=== PATIENT | male | born 1960 ===

== ENCOUNTER 2020-10-13 10:27 | Outpatient (REF) | payer OTHER, SELFPAY ==
[2020-10-13 12:25] LABS: Alanine Aminotransferase 23 U/L (0-40); Albumin Level 4.2 g/dL (3.5-5.0); Alkaline Phosphatase 80 U/L (39-117); Anion Gap 12 (12-20); Aspartate Amino Transferase 18 U/L (5-37); Bilirubin Total 0.5 mg/dL (0.0-1.0); Blood Urea Nitrogen 16 mg/dL (9-16); Calcium 9.3 mg/dL (8.4-10.2); Carbon Dioxide 29 mmol/L (22-29); Chloride 102 mmol/L (96-108); Cholesterol 263 mg/dL; Estimated Glomerular Filt Rate > 60; Glucose Fasting 91 mg/dL (60-99); HDL Cholesterol 40 mg/dL; Potassium 4.8 mmol/l (3.3-5.1); Sodium 138 mmol/L (135-145); Total Protein 6.9 g/dL (6.5-8.0); Triglycerides 475 mg/dL
== END 2020-10-13 10:28 | disposition home or self-care (01) ==
LOC: HO.LAB 10:27
PROVIDERS: PCP Internal Medicine; Visit Provider Internal Medicine
DX: E78.2 Mixed hyperlipidemia (principal)
CPT/HCPCS: 80053; 80061

== ENCOUNTER 2021-01-06 09:45 | Outpatient (REF) | payer OTHER, SELFPAY ==
[2021-01-06 12:33] LABS: Alanine Aminotransferase 22 U/L (0-40); Albumin Level 4.6 g/dL (3.5-5.0); Alkaline Phosphatase 88 U/L (39-117); Anion Gap 13 (12-20); Aspartate Amino Transferase 22 U/L (5-37); Bilirubin Total 0.6 mg/dL (0.0-1.0); Blood Urea Nitrogen 22 mg/dL (9-16); Calcium 9.9 mg/dL (8.4-10.2); Carbon Dioxide 28 mmol/L (22-29); Chloride 102 mmol/L (96-108); Cholesterol 168 mg/dL; Estimated Glomerular Filt Rate > 60; Glucose Fasting 104 mg/dL (60-99); HDL Cholesterol 45 mg/dL; LDL Cholesterol Calculated 89 mg/dl; Potassium 4.8 mmol/L (3.3-5.1); Sodium 138 mmol/L (135-145); Total Protein 7.2 g/dL (6.5-8.0); Triglycerides 172 mg/dL
== END 2021-01-06 09:46 | disposition home or self-care (01) ==
LOC: HO.LAB 09:45
PROVIDERS: PCP Internal Medicine; Visit Provider Internal Medicine
DX: E78.2 Mixed hyperlipidemia (principal); E78.5 Hyperlipidemia, unspecified
CPT/HCPCS: 36415; 80053; 80061

== ENCOUNTER 2021-04-03 16:02 | Outpatient (REF) | payer OTHER, SELFPAY ==
--- NOTE | ~2021-04-03 | US_ITS ---
EXAMINATION: US EXTREMITY NONVASCULAR, RIGHT CLINICAL INFORMATION: Fullness over the right axillary region. COMPARISON: None TECHNIQUE: Limited ultrasound imaging through the right axilla was performed. FINDINGS: Imaging through the right axilla reveals a small lymph node in the area of previously noted lump measuring 2.0 x 0.7 x 0.7 cm. It has benign characteristics. No abnormal vascular flow seen. US/US extremity nonvascular IMPRESSION: Small benign lymph node noted in the right axilla. No lump seen at this time.
== END 2021-04-03 16:03 | disposition home or self-care (01) ==
LOC: HO.US 16:02
PROVIDERS: PCP Physician Assistant; Visit Provider Physician Assistant
DX: R79.89 Other specified abnormal findings of blood chemistry (principal)
CPT/HCPCS: 76882

== ENCOUNTER 2022-09-10 08:32 | Outpatient (REF) | payer OTHER, SELFPAY ==
[2022-09-10 09:26] LABS: Alanine Aminotransferase 24 U/L (0-40); Albumin Level 4.1 g/dL (3.5-5.0); Alkaline Phosphatase 93 U/L (39-117); Anion Gap 12 (12-20); Aspartate Amino Transferase 24 U/L (5-37); Bilirubin Total 0.6 mg/dL (0.0-1.0); Blood Urea Nitrogen 17 mg/dL (9-16); Calcium 9.5 mg/dL (8.4-10.2); Carbon Dioxide 28 mmol/L (22-29); Chloride 103 mmol/L (96-108); Cholesterol 204 mg/dL; Estimated Glomerular Filt Rate > 60; Glucose Fasting 105 mg/dL (60-99); HDL Cholesterol 40 mg/dL; LDL Cholesterol Calculated 126 mg/dl; Potassium 4.7 mmol/L (3.3-5.1); Sodium 138 mmol/L (135-145); Total Protein 6.7 g/dL (6.5-8.0); Triglycerides 194 mg/dL
== END 2022-09-10 08:33 | disposition home or self-care (01) ==
LOC: HO.LAB 08:32
PROVIDERS: PCP Internal Medicine; Visit Provider Internal Medicine
DX: E78.5 Hyperlipidemia, unspecified (principal); I10 Essential (primary) hypertension
CPT/HCPCS: 36415; 80053; 80061

== ENCOUNTER 2023-09-07 08:53 | Outpatient (REF) | payer OTHER, SELFPAY ==
[2023-09-07 10:05] LABS: Alanine Aminotransferase 16 U/L (0-40); Albumin Level 4.2 g/dL (3.5-5.0); Alkaline Phosphatase 88 U/L (39-117); Anion Gap 10 (12-20); Aspartate Amino Transferase 18 U/L (5-37); Bilirubin Total 0.4 mg/dL (0.0-1.0); Blood Urea Nitrogen 19 mg/dL (9-16); Calcium 9.5 mg/dL (8.4-10.2); Carbon Dioxide 29 mmol/L (22-29); Chloride 104 mmol/L (96-108); Cholesterol 231 mg/dL (<200); Estimated Glomerular Filt Rate > 60; Glucose Fasting 101 mg/dL (60-99); HDL Cholesterol 43 mg/dL (>40); LDL Cholesterol Calculated 145 mg/dL (<100); Potassium 4.8 mmol/L (3.3-5.1); Sodium 138 mmol/L (135-145); Total Protein 6.8 g/dL (6.5-8.0); Triglycerides 215 mg/dL (<150)
== END 2023-09-07 08:54 | disposition home or self-care (01) ==
LOC: HO.LAB 08:53
PROVIDERS: PCP Internal Medicine; Visit Provider Internal Medicine
DX: E78.5 Hyperlipidemia, unspecified (principal); H81.10 Benign paroxysmal vertigo, unspecified ear
CPT/HCPCS: 36415; 80053; 80061

== ENCOUNTER 2023-09-19 07:49 | Outpatient (AMB) | payer OTHER, SELFPAY ==
--- NOTE | 2023-09-19 07:51 | MHC.PC.OV ---
Vital Signs 09/19/23 07:54 Height 5 ft 9 in Weight 208 lb BMI 30.7 BP 130/80 Blood Pressure Location Lt brachial Position Sitting Pulse 78 Pulse Source Pulse Oximeter Pulse Oximetry (%) 99 Oxygen Delivery Method Room Air Intake Visit Reasons: Annual PE Intake Note: Patient here for an annual physical exam Retail Store Assistant Required: No Accompanied by: Self / Same As Patient Allergies atorvastatin Adverse Reaction (Intermediate, Verified 09/19/23 08:21) polyarthralgia Medication List - Last Reconciled 09/19/23 by Orly Chaudhry MD amlodipine 5 mg PO DAILY 90 days atorvastatin 40 mg PO BEDTIME 90 days fenofibrate 54 mg PO DAILY 90 days nabumetone 750 mg PO BID 90 days Tobacco use date assessed: 04/12/23 Dental Screening Dental Screen Date: 09/19/23 Did you have a dental visit in the last 12 months?: No Did you have a dental problem in the last 6 months where you did not have access to dental care?: No Was dental information given to patient?: Patient has dentist HPI HPI Comments History of Present Illness Details This is a 62-year-old male that comes for his physical exam. Last colonoscopy was 2018 and next colonoscopy should be 2020. Blood pressure has been stable with amlodipine 5 mg. Cholesterol elevated because he admits that he is not compliant with atorvastatin due to myalgias. Atorvastatin will be changed to rosuvastatin due to this matter. His [place] risk score at the moment is 15.1% risk of having a heart attack or stroke in the next 10 years. Patient is aware of this risk. Complains of a rash in arms that is maculopapular pruritic. [facility] Medical History Skin lesion BPPV (benign paroxysmal positional vertigo) Obese Mixed hyperlipidemia Essential hypertension Surgical History History of colonoscopy Deficient knowledge of leg surgery History of umbilical hernia repair History of lumbar fusion Family History Father No problems noted. Mother Breast cancer Maternal Aunt Cancer Maternal Uncle Cancer Social History Housing: Apartment Alcohol intake: never Patient Tobacco Use Status: Never used Tobacco e-Cigarette/Vaping Use: Never Used Second Hand Smoke Exposure: No service: No Current occupational status: unemployed Cognitive needs: No Hearing needs: No Vision needs: No Questionnaire Thrive Questionnaire Date Thrive assessed: 04/12/23 BERNARD-7 AMB Questionnaire BERNARD-7 Date BERNARD - 7 assessed: 04/12/23 Source: Developed by Drs. Rustam Laguerre, Sonia Aiken, Elvis Palomino and colleagues, with an educational lesvia from [employer]. Review of Systems Const All systems reviewed & are unremarkable except as noted in HPI and below Eyes Reports no additional complaints, Denies change in vision and Denies other visual disturbances Card Denies chest pain at rest, Denies chest pain with activity, Denies edema, Denies irregular heart rhythm, Denies claudication, Denies dyspnea, Denies dyspnea on exertion, Denies orthopnea, Denies paroxysmal nocturnal dyspnea and Denies slow heart rate Resp Denies cough, Denies dyspnea and Denies dyspnea on exertion GI Denies abdominal pain, Denies change in bowel habits, Denies excessive flatus, Denies nausea and Denies vomiting Denies urinary hesitancy, Denies urinary incontinence and Denies urinary urgency Musc Denies abnormal gait, Denies atrophy, Denies deformity and Denies limited range of motion Skin/Breast Denies bleeding lesions, Denies changing lesions and Denies rash Neuro Denies abnormal gait, Denies behavioral changes, Denies confusion and Denies lack of coordination Psych Denies behavioral changes and Denies confusion Physical exam (Primary Care) Vital Signs: Last Vital Signs Pulse 78 09/19/23 07:54 BP 130/80 09/19/23 07:54 Pulse Ox 99 09/19/23 07:54 Oxygen Delivery Method Room Air 09/19/23 07:54 BMI result Body Mass Index 30.7 Tobacco/Smoking Status: Tobacco use Status Tobacco use date assessed 04/12/23 09/19/23 07:54 Patient Tobacco Use Status Never used Tobacco 09/19/23 07:54 e-Cigarette/Vaping Use Never Used 09/19/23 07:54 Thrive Assessment: Date of Thrive Assessment Date Thrive assessed 04/12/23 09/19/23 07:54 Const General: No confusion Orientation/consciousness: patient oriented x3 and No confusion HENMT Head: Yes normal to inspection, Yes normocephalic and Yes atraumatic Ears: external ears normal Eyes General: appearance normal, both eyes and all related structures Eyelids: Yes eyelids normal Conjunctivae: conjunctivae normal Neck Neck: Yes normal visual inspection and Yes supple Resp Effort & Inspection: normal respiratory effort Auscultation: clear to auscultation bilaterally Cardio Jugular venous distension: no JVD Rate: regular rate Rhythm: regular rhythm Heart sounds: S1 normal heart sound present and S2 normal heart sound present GI Inspection: Yes normal to inspection Palpation (GI): Soft to palpation and nontender Auscultation: normal bowel sounds Skin General skin exam: no rashes or lesions noted Neuro General: patient oriented x3, no focal motor deficits and No confusion Extrem General: Yes full ROM Psych Appearance: grossly normal Office Procedures Flu Questionnaire Does the patient have a severe egg allergy?: No Immunizations flu vacc [id number] 6mos up(PF) 60 mcg(15 mcgx4)/0.5 mL IM syringe Performing Provider: Orly Chaudhry MD [facility] Documented (not given) by: SULEMAN Ashley on 09/19/23 08:26 Reason Not Given: Not Given Assessment and Plan Assessment & Plan (1) Physical exam: Code(s): Z00.00 - Encounter for general adult medical examination without abnormal findings Plan: Repeat in a year. Orders: Orders Lipid Panel 6 Months E78.5 - Hyperlipidemia, unspecified Comprehensive [place]. Panel Fast 6 Months E78.2 - Mixed hyperlipidemia Influenza [id number] Immunization Today Z23 - Encounter for immunization Medications: New rosuvastatin 40 mg PO DAILY 90 days 90 tabs 1RF E78.2 - Mixed hyperlipidemia triamcinolone acetonide 0.5% 1 appl topical DAILY 2 weeks 15 grams 1RF Discontinued atorvastatin Discontinued Reason: Patient Completed Course 40 mg PO BEDTIME 90 days 90 tabs 3RF Coding Level of Care Code Est Pt Prev Care 40-64y(66808) Diagnoses Physical exam Z00.00 Time Spent (min) 32
[2023-09-19 07:54] VITALS: BP 130/80; PULSE 78; O2SAT 99; BMI 30.7
== END 2023-09-19 08:19 | disposition home or self-care (01) ==
PROVIDERS: Visit Provider Internal Medicine
DX: Z00.00 Encounter for general adult medical examination without abnormal findings (principal)
CPT/HCPCS: 99396

== ENCOUNTER 2023-12-07 15:37 | Outpatient (AMB) | payer OTHER, SELFPAY ==
--- NOTE | 2023-12-07 15:49 | MHC.PC.OV ---
Vital Signs 12/07/23 15:50 12/07/23 16:50 Height 5 ft 9 in Weight 213 lb BMI 31.5 BP 138/90 H 138/88 Blood Pressure Location Lt brachial Lt brachial Position Sitting Sitting Intake Visit Reasons: pain on left big toe joint Intake Note: Patient here c/o big toe pain Medical Services Manager Required: No Accompanied by: Self / Same As Patient Allergies atorvastatin Adverse Reaction (Intermediate, Verified 12/07/23 16:07) polyarthralgia Medication List - Last Reconciled 12/07/23 by Orly Chaudhry MD amlodipine 5 mg PO DAILY 90 days fenofibrate 54 mg PO DAILY 90 days nabumetone 750 mg PO BID 90 days naproxen 500 mg PO BID rosuvastatin 40 mg PO DAILY 90 days triamcinolone acetonide 0.5% 1 appl topical DAILY 2 weeks Tobacco use date assessed: 12/07/23 Dental Screening Dental Screen Date: 12/07/23 Did you have a dental visit in the last 12 months?: No Did you have a dental problem in the last 6 months where you did not have access to dental care?: No Was dental information given to patient?: Patient has dentist HPI HPI Comments History of Present Illness Details This is a 63-year-old male with hypertension, mixed hyperlipidemia and obesity that complains of left 1st toe pain and swelling that started 5 days ago. He went to [facility] and was prescribed naproxen. Dated uric acid and CBC but I do not have the results. We will repeated today as well as an x-ray. No fever. Naproxen has decrease his inflammation and is able to move the toe. Blood pressure stable. On statins and fibrates for mixed hyperlipidemia. He is obese with a BMI of 31.5 was advised to diet and exercise to reach BMI goal less than 30. Was advised to do a low uric acid diet. [facility] Medical History (Updated 12/07/23 @ 16:09 by Orly Chaudhry MD) Skin lesion BPPV (benign paroxysmal positional vertigo) Obese Mixed hyperlipidemia Essential hypertension Surgical History History of colonoscopy Deficient knowledge of leg surgery History of umbilical hernia repair History of lumbar fusion Family History Father No problems noted. Mother Breast cancer Maternal Aunt Cancer Maternal Uncle Cancer Social History Housing: Apartment Alcohol intake: never Patient Tobacco Use Status: Never used Tobacco e-Cigarette/Vaping Use: Never Used Second Hand Smoke Exposure: No service: No Current occupational status: unemployed Cognitive needs: No Hearing needs: No Vision needs: No Questionnaire PHQ-9 Over the last 2 weeks, how often have you been bothered by any of the following problems? 1. Little interest or pleasure in doing things: not at all 2. Feeling down, depressed, or hopeless: not at all 3. Trouble falling or staying asleep, or sleeping too much: not at all 4. Feeling tired or having little energy: not at all 5. Poor appetite or overeating: not at all 6. Feeling bad about yourself - or that you are a failure or have let yourself or your family down: not at all 7. Trouble concentrating on things, such as reading the newspaper or watching television: not at all 8. Moving or speaking so slowly that other people could have noticed. Or the opposite - being so fidgety or restless that you have been moving around a lot more than usual: not at all 9. Thoughts that you would be better off or of hurting yourself in some way: not at all Total score: 0 Depression Screening Interpretation: Negative Depression Screening Done: Yes 07660 - PHQ-9 Billing: Yes Source: Developed by Drs. Rustam Laguerre, Sonia Aiken, Elvis Palomino and colleagues, with an educational lesvia from [employer]. Thrive Questionnaire Date Thrive assessed: 12/07/23 I am a: Patient What is your living situation today?: I have a steady place to live Within the past 12 months, did the food you bought not last and you didn't have the money to get more?: Never true Within the past 12 months, did you worry whether your food would run out before you got money to buy more?: Never true Do you have trouble paying for medicines?: No Do you have trouble getting transportation to medical appointments?: No Do you have trouble paying your heating and electricity bill?: No Do you have trouble taking care of your child, family member or friend?: No Do you have trouble with day-to-day activities such as bathing, preparing meals, shopping, managing finances, etc.?: No Are you currently unemployed and looking for a job?: No Are you interested in more education?: No Please select the resources that you would like help with: None Currently or been in a relationship where the following occur: no concerns reported THRIVE Score: 0 AUDIT C Alcohol Use Questionnaire (AUDIT-C) 1. How often do you have a drink containing alcohol?: Never Total Score: 0 BERNARD-7 AMB Questionnaire BERNARD-7 Date BERNARD - 7 assessed: 12/07/23 Feeling nervous, anxious, or on edge: 0 = Not at all Not being able to stop or control worryin = Not at all Worrying too much about different things: 0 = Not at all Trouble relaxin = Not at all Being so restless that it is hard to sit still: 0 = Not at all Becoming easily annoyed or irritable: 0 = Not at all Feeling afraid as if something awful might happen: 0 = Not at all Total BERNARD-7 score (0-4 normal; 5-9 mild; 10-14 moderate; 15-21 severe): 0 Source: Developed by Drs. Rustam Laguerre, Sonia Aiken, Elvis Palomino and colleagues, with an educational lesvia from [employer]. BERNARD-7 Assessment Billing BERNARD-7 Assessment Tool: BERNARD-7 Assessment 39045 Review of Systems Const All systems reviewed & are unremarkable except as noted in HPI and below Eyes Reports no additional complaints, Denies change in vision and Denies other visual disturbances Card Denies chest pain at rest, Denies chest pain with activity, Denies edema, Denies irregular heart rhythm, Denies claudication, Denies dyspnea, Denies dyspnea on exertion, Denies orthopnea, Denies paroxysmal nocturnal dyspnea and Denies slow heart rate Resp Denies cough, Denies dyspnea and Denies dyspnea on exertion GI Denies abdominal pain, Denies change in bowel habits, Denies excessive flatus, Denies nausea and Denies vomiting Denies urinary hesitancy, Denies urinary incontinence and Denies urinary urgency Musc Denies abnormal gait, Denies atrophy, Denies deformity and Denies limited range of motion Skin/Breast Denies bleeding lesions, Denies changing lesions and Denies rash Neuro Denies abnormal gait, Denies behavioral changes and Denies lack of coordination Psych Denies behavioral changes Physical exam (Primary Care) Vital Signs: Last Vital Signs BP 138/90 H 12/07/23 15:50 BMI result Body Mass Index 31.5 Tobacco/Smoking Status: Tobacco use Status Tobacco use date assessed 12/07/23 12/07/23 15:53 Patient Tobacco Use Status Never used Tobacco 12/07/23 15:53 e-Cigarette/Vaping Use Never Used 12/07/23 15:53 PHQ-9: PHQ-9 Score PHQ-9: Total score 0 12/07/23 16:15 Depression Screening Interpretation: Negative Thrive Assessment: Date of Thrive Assessment Date Thrive assessed 12/07/23 12/07/23 15:53 Currently or been in a relationship where the following occur: no concerns reported Eyes General: appearance normal, both eyes and all related structures Eyelids: Yes eyelids normal Conjunctivae: conjunctivae normal Neck Neck: Yes normal visual inspection and Yes supple Resp Effort & Inspection: normal respiratory effort Auscultation: clear to auscultation bilaterally Cardio Jugular venous distension: no JVD Rate: regular rate Rhythm: regular rhythm Heart sounds: S1 normal heart sound present and S2 normal heart sound present Extrem Other: podagra General: Yes full ROM Assessment and Plan Assessment & Plan (1) Essential hypertension: Code(s): I10 - Essential (primary) hypertension Plan: Continue amlodipine. Blood pressure goal is equal or less than 130/80. (2) Mixed hyperlipidemia: Code(s): E78.2 - Mixed hyperlipidemia Plan: Continue statins and fibrates. (3) Left foot pain: Code(s): M79.672 - Pain in left foot Plan: X-ray ordered. Continue naproxen. CBC and uric acid ordered. (4) Obese: Code(s): E66.9 - Obesity, unspecified Qualifiers: Obesity type: due to excess calories Obesity classification: adult class 1 (BMI 30 - 34.9) Serious obesity comorbidity presence: without serious comorbidity Body mass index: BMI 31.0-31.9 Qualified Code(s): E66.09 - Other obesity due to excess calories; Z68.31 - Body mass index [BMI] 31.0-31.9, adult Plan: Start diet and exercise. BMI goal is less than 30. Orders: Orders Uric Acid Today M10.9 - Gout, unspecified XR foot LT 2V Today M79.672 - Pain in left foot Complete Blood Count Auto Diff Today M79.672 - Pain in left foot Coding Level of Care Code Est Pt Level 4 (87675) Diagnoses Essential hypertension I10 Mixed hyperlipidemia E78.2 Left foot pain M79.672 Class 1 obesity due to excess calories without serious comorbidity with body mass index (BMI) of 31.0 to 31.9 in adult E66.09; Z68.31 Obesity type: due to excess calories Obesity classification: adult class 1 (BMI 30 - 34.9) Serious obesity comorbidity presence: without serious comorbidity Body mass index: BMI 31.0-31.9 Additional Codes BERNARD-7 Assessment Billing - BERNARD-7 Assessment Tool: BERNARD-7 Assessment 98845 ([id number]) Time Spent (min) 23
[2023-12-07 15:50] VITALS: BP 138/90; BMI 31.5
[2023-12-07 16:50] VITALS: BP 138/88
== END 2023-12-07 16:14 | disposition home or self-care (01) ==
PROVIDERS: PCP Internal Medicine; Visit Provider Internal Medicine
DX: I10 Essential (primary) hypertension (principal); E78.2 Mixed hyperlipidemia; M79.672 Pain in left foot; E66.09 Other obesity due to excess calories; Z68.31 Body mass index [BMI] 31.0-31.9, adult
CPT/HCPCS: 99214

== ENCOUNTER 2023-12-07 16:24 | Outpatient (REF) | payer OTHER, SELFPAY ==
--- NOTE | ~2023-12-07 | XR_ITS ---
EXAMINATION: XR FOOT, LEFT CLINICAL INFORMATION: Pain. COMPARISON: None available. TECHNIQUE: AP, lateral, and oblique views of the left foot. FINDINGS: The bones and soft tissues are normal. No fracture. Alignment is anatomic. Joint spaces are maintained. XR/XR foot LT 2V IMPRESSION: Normal left foot.
[2023-12-07 16:36] LABS: MANUAL DIFF FLAG NO
[2023-12-07 16:54] LABS: Basophils Percent Auto 0.2 % (0-2); Eosinophils Absolute Auto 0.2 X10*3/uL (0.0-0.4); Eosinophils Percent Auto 2.9 % (0-4); Hematocrit 41.6 % (42.0-52.0); Hemoglobin 13.9 g/dl (14.0-18.0); Imm Gran Abs Auto 0.03 X10*3/uL (0.00-0.03); Imm Gran Pct Auto 0.4 % (0.0-0.4); Lymphocytes Absolute Auto 2.2 X10*3/uL (1.2-4.9); Lymphocytes Percent Auto 26.8 % (20-40); Mean Corpuscular HGB Conc 33.4 g/dl (31.0-36.0); Mean Corpuscular Hemoglobin 28.7 pg (27.0-33.0); Mean Platelet Volume 10.2 fL (9.4-12.4); Monocytes Absolute Auto 0.6 X10*3/uL (0.1-1.2); Monocytes Percent Auto 6.7 % (2-11); Neutrophils Absolute Auto 5.2 x10*3/uL (2.0-8.3); Platelet Count 320 X10*3/uL (160-400); Red Blood Count 4.84 X10*6/uL (4.60-5.80); Red Cell Distribution Width 12.8 % (11.0-16.0); White Blood Count 8.2 X10*3/uL (4.8-10.8)
[2023-12-07 17:25] LABS: Alanine Aminotransferase 17 U/L (0-40); Albumin Level 4.3 g/dL (3.5-5.0); Alkaline Phosphatase 93 U/L (39-117); Anion Gap 13 (12-20); Aspartate Amino Transferase 20 U/L (5-37); Bilirubin Total 0.3 mg/dL (0.0-1.0); Blood Urea Nitrogen 15 mg/dL (9-16); Calcium 9.9 mg/dL (8.4-10.2); Carbon Dioxide 28 mmol/L (22-29); Chloride 102 mmol/L (96-108); Cholesterol 191 mg/dL (<200); Estimated Glomerular Filt Rate > 60; Glucose Fasting 94 mg/dL (60-99); HDL Cholesterol 36 mg/dL (>40); LDL Cholesterol Calculated 114 mg/dL (<100); Potassium 4.6 mmol/L (3.3-5.1); Sodium 138 mmol/L (135-145); Total Protein 7.5 g/dL (6.5-8.0); Triglycerides 207 mg/dL (<150); Uric Acid 6.6 mg/dL (3.4-7.0)
== END 2023-12-07 16:25 | disposition home or self-care (01) ==
LOC: HO.LAB 16:24
PROVIDERS: PCP Internal Medicine; Visit Provider Internal Medicine
DX: M10.9 Gout, unspecified (principal); M79.672 Pain in left foot; E78.2 Mixed hyperlipidemia; E78.5 Hyperlipidemia, unspecified
CPT/HCPCS: 36415; 73620; 80053; 80061; 84550; 85025

== ENCOUNTER 2024-03-19 10:08 | Outpatient (REF) | payer OTHER, SELFPAY ==
[2024-03-19 11:20] LABS: Alanine Aminotransferase 15 U/L (0-40); Alkaline Phosphatase 86 U/L (39-117); Anion Gap 9 (12-20); Aspartate Amino Transferase 17 U/L (5-37); Bilirubin Total 0.4 mg/dL (0.0-1.0); Blood Urea Nitrogen 17 mg/dL (9-16); Calcium 9.9 mg/dL (8.4-10.2); Carbon Dioxide 27 mmol/L (22-29); Chloride 106 mmol/L (96-108); Cholesterol 238 mg/dL (<200); Estimated Glomerular Filt Rate > 60; Glucose Fasting 95 mg/dL (60-99); HDL Cholesterol 43 mg/dL (>40); LDL Cholesterol Calculated 154 mg/dL (<100); Potassium 4.4 mmol/L (3.3-5.1); Sodium 138 mmol/L (135-145); Total Protein 6.7 g/dL (6.5-8.0); Triglycerides 209 mg/dL (<150)
== END 2024-03-19 10:09 | disposition home or self-care (01) ==
LOC: HO.LAB 10:08
PROVIDERS: PCP Internal Medicine; Visit Provider Internal Medicine
DX: I10 Essential (primary) hypertension (principal); E78.5 Hyperlipidemia, unspecified
CPT/HCPCS: 36415; 80053; 80061

== ENCOUNTER 2024-03-21 08:00 | Outpatient (AMB) | payer OTHER, SELFPAY ==
--- NOTE | 2024-03-21 08:03 | MHC.PC.OV ---
Vital Signs 03/21/24 08:04 03/21/24 10:03 Height 5 ft 9 in Weight 211 lb 8 oz BMI 31.2 BP 152/90 H 150/90 H Blood Pressure Location Lt brachial Lt brachial Position Sitting Sitting Intake Visit Reasons: bp Intake Note: Patient here for a follow up BP Signal And Communications Maintainer Required: No Accompanied by: Self / Same As Patient Allergies atorvastatin Adverse Reaction (Intermediate, Verified 03/21/24 08:30) polyarthralgia Medication List - Last Reconciled 03/21/24 by Orly Chaudhry MD amlodipine 5 mg PO DAILY 90 days fenofibrate 54 mg PO DAILY 90 days nabumetone 750 mg PO BID 90 days naproxen 500 mg PO BID rosuvastatin 40 mg PO DAILY 90 days Tobacco use date assessed: 12/07/23 Dental Screening Dental Screen Date: 12/07/23 HPI HPI Comments History of Present Illness Details This is a 63-year-old male with hypertension, mixed hyperlipidemia and obesity that comes today for follow-up on his conditions. Blood pressure elevated and he took some medication but he has not sure if it was amlodipine which has not been refilled since 2021. Blood pressure will be recheck in 3 weeks by nurse navigator. He admits not being compliant with statins and fibrates and his cholesterol and triglycerides are elevated. He also does not follow a low-cholesterol diet. He has obese with a BMI of 31.2 and was advised to do diet and exercise to reach BMI goal less than 30. No chest pain or shortness on breath. [facility] Medical History Skin lesion BPPV (benign paroxysmal positional vertigo) Obese Mixed hyperlipidemia Essential hypertension Surgical History History of colonoscopy Deficient knowledge of leg surgery History of umbilical hernia repair History of lumbar fusion Family History Father No problems noted. Mother Breast cancer Maternal Aunt Cancer Maternal Uncle Cancer Social History Housing: Apartment Alcohol intake: never Patient Tobacco Use Status: Never used Tobacco e-Cigarette/Vaping Use: Never Used Second Hand Smoke Exposure: No service: No Current occupational status: employed Current occupational exposures/hazards: No Cognitive needs: No Hearing needs: No Vision needs: Yes Questionnaire Thrive Questionnaire Date Thrive assessed: 12/07/23 BERNARD-7 AMB Questionnaire BERNARD-7 Date BERNARD - 7 assessed: 12/07/23 Source: Developed by Drs. Rustam Laguerre, Sonia Aiken, Elvis Palomino and colleagues, with an educational lesvia from [employer]. Review of Systems Const All systems reviewed & are unremarkable except as noted in HPI and below Card Denies chest pain at rest, Denies chest pain with activity, Denies edema, Denies irregular heart rhythm, Denies claudication, Denies dyspnea, Denies dyspnea on exertion, Denies orthopnea, Denies paroxysmal nocturnal dyspnea and Denies slow heart rate Resp Denies cough, Denies dyspnea and Denies dyspnea on exertion GI Denies abdominal pain, Denies change in bowel habits, Denies excessive flatus, Denies nausea and Denies vomiting Denies urinary hesitancy, Denies urinary incontinence and Denies urinary urgency Musc Denies atrophy, Denies deformity and Denies limited range of motion Physical exam (Primary Care) Vital Signs: Last Vital Signs BP 152/90 H 03/21/24 08:04 Care Plan Goal for BP management: Recheck blood pressure with nurse navigator in 3 weeks. Next steps: Be compliant with amlodipine. BMI result Body Mass Index 31.2 BMI Assessment/Plan discussion: High BMI High, discussed plan: lifestyle, weight reduction, dietary and physical activity Tobacco/Smoking Status: Tobacco use Status Tobacco use date assessed 12/07/23 03/21/24 08:09 Patient Tobacco Use Status Never used Tobacco 03/21/24 08:09 e-Cigarette/Vaping Use Never Used 03/21/24 08:09 Thrive Assessment: Date of Thrive Assessment Date Thrive assessed 12/07/23 03/21/24 08:09 Resp Effort & Inspection: normal respiratory effort Auscultation: clear to auscultation bilaterally Cardio Jugular venous distension: no JVD Rate: regular rate Rhythm: regular rhythm Heart sounds: S1 normal heart sound present and S2 normal heart sound present Extrem General: Yes full ROM Assessment and Plan Assessment & Plan (1) Essential hypertension: Code(s): I10 - Essential (primary) hypertension Plan: Be compliant with amlodipine. Blood pressure goal is equal or less than 130/80. (2) Mixed hyperlipidemia: Code(s): E78.2 - Mixed hyperlipidemia Plan: Be compliant with statins and fibrates. LDL goal is less than 70. (3) Obese: Code(s): E66.9 - Obesity, unspecified Qualifiers: Obesity type: due to excess calories Obesity classification: adult class 1 (BMI 30 - 34.9) Serious obesity comorbidity presence: without serious comorbidity Body mass index: BMI 31.0-31.9 Qualified Code(s): E66.09 - Other obesity due to excess calories; Z68.31 - Body mass index [BMI] 31.0-31.9, adult Plan: Start diet and exercise. BMI goal is less than 30. Orders: Orders Lipid Panel 6 Months E78.5 - Hyperlipidemia, unspecified Comprehensive [place]. Panel Fast 6 Months E78.2 - Mixed hyperlipidemia Medications: Refilled fenofibrate 54 mg PO DAILY 90 tabs 3RF 90 days rosuvastatin 40 mg PO DAILY 90 tabs 1RF 90 days E78.2 - Mixed hyperlipidemia amlodipine 5 mg PO DAILY 90 tabs 1RF 90 days I10 - Essential (primary) hypertension Discontinued nabumetone Discontinued Reason: Patient Completed Course 750 mg PO BID 90 days 180 tabs 1RF Coding Level of Care Code Est Pt Level 3 (59179) Complex EM visit Add On G2211 Diagnoses Essential hypertension I10 Mixed hyperlipidemia E78.2 Class 1 obesity due to excess calories without serious comorbidity with body mass index (BMI) of 31.0 to 31.9 in adult E66.09; Z68.31 Obesity type: due to excess calories Obesity classification: adult class 1 (BMI 30 - 34.9) Serious obesity comorbidity presence: without serious comorbidity Body mass index: BMI 31.0-31.9 Time Spent (min) 19
[2024-03-21 08:04] VITALS: BP 152/90; BMI 31.2
[2024-03-21 10:03] VITALS: BP 150/90
== END 2024-03-21 08:40 | disposition home or self-care (01) ==
PROVIDERS: PCP Internal Medicine; Visit Provider Internal Medicine
DX: I10 Essential (primary) hypertension (principal); E78.2 Mixed hyperlipidemia; E66.09 Other obesity due to excess calories; Z68.31 Body mass index [BMI] 31.0-31.9, adult
CPT/HCPCS: 99213; G2211

== ENCOUNTER 2024-11-16 09:47 | Outpatient (REF) | payer OTHER, SELFPAY ==
--- OUTSIDE RECORDS SUMMARY | 2024-11-16 10:28 | XMS_ITS | Data Portability ---
Author Organization CHIRAG Mccain [address] Address [address] [place] [address] Assessment Encounter Date Assessment Date Assessment LastModified by Organization Details LastModified Time 12/02/2023 12/02/2023 Duplicate Visit - error this day with clinical staff and having trouble ordering labs. See other note on the same date. This chart had billing information added but it should be a left without being seen. Yolanda Schafer PA-C [email or web address] Not available 01/29/2024 09:33:21 12/02/2023 12/02/2023 C/f for gout. DDx cellulitis although less likely. Will tx for gout. Will follow up on Uric acid and CBC. [email or web address] Not available 12/02/2023 17:08:30 Plan of Treatment Reminders Order Date Submit Date Provider Last Modified By Organization Details Last Modified Time Details Appointments None recorded. Lab uric acid, serum or plasma 2023 024 [email or web address] 5 [facility] ([place]), [address] [place], [address], 4 08:13:12 CBC w/ auto diff 2023 024 [email or web address] 31 [facility] ([place]), [address] [place], [address], 4 10:35:03 uric acid, serum or plasma 2023 024 [facility], [address] [place], [address], 4 08:08:16 CBC w/ auto diff 2023 024 [place] [facility], [place], [address], 08:08:15 Referral None recorded. Procedures None recorded. Surgeries None recorded. Imaging None recorded. Medication Orders naproxen 500 mg tablet 2023 024 [facility], [address] [facility], [place], [address], 11:32:09 Patient TargetsNo targets recorded. Patient Instructions Encounter Date Encounter Id Patient Instructions Last Modified By Organization Details Last Modified Time 12/02/2023 [id number] specimen collection & handling* Not available 12/15/2023 12:16:18 12/02/2023 [id number] specimen collection & handling* marchambo Not available 12/02/2023 14:00:11 You were seen today for left toe pain. your pain is concerning for gout. It could also be from infection but less likely. Recommendation as below: - Naproxen 500 mg twice a day for 5-7 days. Take with food. - We will contact you with the lab results. - Return to urgent care if worsening symptoms or lack of improvement [email or web address] Not available 12/02/2023 10:27:12 Reason for Referral None Reported. Results Created Date Observation Date Name Description Value Unit Range Abnormal Flag Note LastModifiedBy Organization Detail LastModifiedTime 12/02/1912/03/2023 CBC WITH DIFFE RENTI AL/PL ATELE T WBC 8.9 x10e3 /uL 3.4-10 .8 Not Available [facility] ([facility]) [address] [facility], [place], [address], 12/03/2023 08:08:15 12/02/1912/03/2023 CBC WITH DIFFE RENTI AL/PL ATELE T RBC 4.75 x10e6 /uL 4.14-5 .80 Not Available [facility] ([facility]) [address] [facility], [place], [address], 12/03/2023 08:08:15 12/02/19 24 12/03/2023 CBC WITH DIFFE RENTI AL/PL ATELE T hemoglobin 14.1 g/dL 13.0-1 7.7 Not Available [facility] ([facility]) [address] [place], [address], 12/03/2023 08:08:15 12/02/19 24 12/03/2023 CBC WITH DIFFE RENTI AL/PL ATELE T hematocrit 41.4 % 37.5-5 1.0 Not Available [facility] ([facility]) [address] [place], [address], 12/03/2023 08:08:15 12/02/19 24 12/03/2023 CBC WITH DIFFE RENTI AL/PL ATELE T MCV 87 fL 79-97 Not Available [facility] ([facility]) [address] [facility], [place], [address], 12/03/2023 08:08:15 12/02/19 24 12/03/2023 CBC WITH DIFFE RENTI AL/PL ATELE T MCH 29.7 pg 26.6-3 3.0 Not Available [facility] ([facility]) [address] [place], [address], 12/03/2023 08:08:15 12/02/19 24 12/03/2023 CBC WITH DIFFE RENTI AL/PL ATELE T MCHC 34.1 g/dL 31.5-3 5.7 Not Available [facility] ([facility]) [address] [place], [address], 12/03/2023 08:08:15 12/02/19 24 12/03/2023 CBC WITH DIFFE RENTI AL/PL ATELE T RDW 12.9 % 11.6-1 5.4 Not Available [facility] ([facility]) [address] [place], [address], 12/03/2023 08:08:15 12/02/19 24 12/03/2023 CBC WITH DIFFE RENTI AL/PL ATELE T platelets 272 x10e3 /uL 150-45 0 Not Available [facility] ([facility]) [address] [facility], [place], [address], 12/03/2023 08:08:15 12/02/19 24 12/03/2023 CBC WITH DIFFE RENTI AL/PL ATELE T neutrophils 71 % not estab. Not Available [facility] ([facility]) [address] [facility], [place], [address], 12/03/2023 08:08:15 12/02/19 24 12/03/2023 CBC WITH DIFFE RENTI AL/PL ATELE T lymphs 18 % not estab. Not Available [facility] ([facility]) [address] [facility], [place], [address], 12/03/2023 08:08:15 12/02/19 24 12/03/2023 CBC WITH DIFFE RENTI AL/PL ATELE T monocytes 9 % not estab. Not Available [facility] ([facility]) [address] [facility], [place], [address], 12/03/2023 08:08:15 12/02/19 24 12/03/2023 CBC WITH DIFFE RENTI AL/PL ATELE T eos 2 % not estab. Not Available [facility] ([facility]) [address] [facility], [place], [address], 12/03/2023 08:08:15 12/02/19 24 12/03/2023 CBC WITH DIFFE RENTI AL/PL ATELE T basos 0 % not estab. Not Available [facility] ([facility]) [address] [facility], [place], [address], 12/03/2023 08:08:15 12/02/19 24 12/03/2023 CBC WITH DIFFE RENTI AL/PL ATELE T immature cells HASSOCK MAKER Not Available [facility] ([facility]) [address] [place], [address], 12/03/2023 08:08:15 12/02/19 24 12/03/2023 CBC WITH DIFFE RENTI AL/PL ATELE T neutrophils (absolute) 6.3 x10e3 /uL 1.4-7. 0 Not Available [facility] ([facility]) [address] [place], [address], 12/03/2023 08:08:15 12/02/19 24 12/03/2023 CBC WITH DIFFE RENTI AL/PL ATELE T lymphs (absolute) 1.6 x10e3 /uL 0.7-3. 1 Not Available [facility] ([facility]) [address] [place], [address], 12/03/2023 08:08:15 12/02/19 24 12/03/2023 CBC WITH DIFFE RENTI AL/PL ATELE T monocytes(ab solute) 0.8 x10e3 /uL 0.1-0. 9 Not Available [facility] ([facility]) [address] [place], [address], 12/03/2023 08:08:15 12/02/19 24 12/03/2023 CBC WITH DIFFE RENTI AL/PL ATELE T eos (absolute) 0.2 x10e3 /uL 0.0-0. 4 Not Available [facility] ([facility]) [address] [place], [address], 12/03/2023 08:08:15 12/02/19 24 12/03/2023 CBC WITH DIFFE RENTI AL/PL ATELE T baso (absolute) 0.0 x10e3 /uL 0.0-0. 2 Not Available [facility] ([facility]) [address] [place], [address], 12/03/2023 08:08:15 12/02/19 24 12/03/2023 CBC WITH DIFFE RENTI AL/PL ATELE T immature granulocytes 0 % not estab. Not Available [facility] ([facility]) [address] [facility], [place], [address], 12/03/2023 08:08:15 12/02/19 24 12/03/2023 CBC WITH DIFFE RENTI AL/PL ATELE T immature grans (abs) 0.0 x10e3 /uL 0.0-0. 1 Not Available [facility] ([facility]) [address] [facility], [place], [address], 12/03/2023 08:08:15 12/02/19 24 12/03/2023 CBC WITH DIFFE RENTI AL/PL ATELE T NRBC HASSOCK MAKER Not Available [facility] ([facility]) [address] [facility], [place], [address], 12/03/2023 08:08:15 12/02/19 24 12/03/2023 CBC WITH DIFFE RENTI AL/PL ATELE T hematology comments: HASSOCK MAKER Not Available [facility] ([facility]) [address] [facility], [place], [address], 12/03/2023 08:08:15 12/02/19 24 12/03/2023 URIC ACID uric acid 6.0 mg/dL 3.8-8. 4 Cherrya ailyn castro t for gout patie nts: <6.0 Not Available [facility] ([facility]) [address] [facility], [place], [address], 12/03/2023 08:08:16 12/02/19 24 12/02/2023 speci men colle ction & handl ing* CBC w/diff Not Available [address] [place], [address], 12/15/2023 12:16:18 12/02/19 24 12/02/2023 speci men colle ction & handl ing* Completed? Succes sfully Not Available [address] [facility], [place], [address], 12/02/2023 10:23:04 Result Notes None recorded. Problems Name Problem SNOMED Code Status Onset Date Resolution Date Notes Provider Name and Address Organization Details Recorded Time Pain of toe of left foot 0928772431627 08 Active 2023 MARIAM LOWRY MD [address] [place], [address], [place] - [facility] 10:11:59 First metatarsoph alangeal joint pain 619544538 Active 2023 CHIRAG BARCENAS [address] [place], [address], [place] - [facility] 10:26:37 Problem Notes None recorded. Medical Equipment None Reported. Allergies No known drug allergies Medications Name Sig Start Date Stop Date Status Note LastModified by Organization Details LastModified Time naproxen 500 mg tablet Take 1 tablet twice a day by oral route. 024 active Not Available Not Available Not Avai lable Vitals Date Recorded Body height Provider Name an d Address Organization Details Last Updated DateTime 12/02/2023 175.26 cm [facility] [place] - [facility] 10:01:07 Date Recorded Body weight Provider Name an d Address Organization Details Last Updated DateTime 12/02/2023 74203.62 g Andres Confucianism [place] - [facility] 10:01:10 Date Recorded Oxygen saturation Oxygen saturation in Arterial blood by Pulse oximetry Provider Name and Address Organization Details Last Updated DateTime 12/02/2023 100 % 100 % Andres Confucianism [place] - [facility] 12/02/2023 10:01:21 Date Recorded Heart rate Provider Name an d Address Organization Details Last Updated DateTime 12/02/2023 65 /min Andres Confucianism [place] - [facility] 10:01:24 Date Recorded Respiratory rate Provider Name a nd Address Organization Details Last Updated DateTime 12/02/2023 18 /min Andres Confucianism [place] - [facility] 10:01:28 Date Recorded Body temperature Provider Name a nd Address Organization Details Last Updated DateTime 12/02/2023 97.9 [degF] Andres Confucianism [place] - [facility] 0 12/02/2023 10:01:34 Date Recorded Body height Provider Name an d Address Organization Details Last Updated DateTime 12/02/2023 175.26 cm Andres Confucianism [place] - [facility] 10:05:32 Date Recorded Body weight Provider Name an d Address Organization Details Last Updated DateTime 12/02/2023 11773.62 g Andres Confucianism [place] - [facility] 10:05:41 Date Recorded Body mass index (BMI) Provider Name and Address Organization Details Last Updated DateTime 12/02/2023 30.6 kg/m2 Andres Confucianism [place] - [facility] 10:05:45 Date Recorded Oxygen saturation Oxygen saturation in Arterial blood by Pulse oximetry Provider Name and Address Organization Details Last Updated DateTime 12/02/2023 100 % 100 % Andres Confucianism [place] - [facility] 12/02/2023 10:05:54 Date Recorded Heart rate Provider Name an d Address Organization Details Last Updated DateTime 12/02/2023 65 /min Andres Confucianism [place] - [facility] 10:05:56 Date Recorded Respiratory rate Provider Name a nd Address Organization Details Last Updated DateTime 12/02/2023 18 /min Andres Confucianism [place] - [facility] 10:05:59 Date Recorded Body temperature Provider Name a nd Address Organization Details Last Updated DateTime 12/02/2023 97.9 [degF] Andres Confucianism [place] - [facility] 0 12/02/2023 10:06:05 Date Recorded Systolic blood pressure Diastolic blood pressure Provider Name and Address Organization Details Last Updated DateTime 12/02/2023 145 mm[Hg] 76 mm[Hg] Andres Confucianism [place] - [facility] 12/02/2023 10:01:19 Date Recorded Systolic blood pressure Diastolic blood pressure Provider Name and Address Organization Details Last Updated DateTime 12/02/2023 145 mm[Hg] 76 mm[Hg] Andres Confucianism [place] - [facility] 12/02/2023 10:05:52 Social History Question Answer Notes LastModified by Organizat ion Details LastModified Time Tobacco Smoking Status Never Smoker [facility] 12/02/2023 10:01:58 What Is Your Level Of Alcohol Consumption? None Information not available 12/02/2023 Are You Currently Employed? No Information not available 12/02/2023 Have You Had A Flu Shot This Season? No Information not available 12/02/2023 If No, Would You Like A Flu Shot Today? No Information not available 12/02/2023 Have You Had Direct Contact, Or Contact During Intimacy, With Monkeypox Rash, Scabs, Or Body Fluids From A Person With Monkeypox? No Information not available 12/02/2023 Do You Use Any Illicit Or Recreational Drugs? No Information not available 12/02/2023 Have You Recently Traveled Abroad? No Information not available 12/02/2023 Are You Currently In School? No Information not available 12/02/2023 Do You Or Have You Ever Used Any Other Forms Of Tobacco Or Nicotine? No Information not available 12/02/2023 Sex: Unknown Functional Status None recorded. Mental Status None recorded. Family History Nothing Reported. Medical History No medical history recorded. Past Encounters Encounter ID Performer Location Encounter Start Date Encounter Closed Date Diagnosis/Indication Diagnosis SNOMED-CT Code Diagnosis ICD10 Code Diagnosis Note [id number] [address] [place] [address] 02/24/2021 10:06:33 02/24/2021 11:23:30 [id number] MARIAM LOWRY MD [address] [place] [address] 12/02/2023 09:45:03 12/02/2023 19:35:05 Pain of toe of left foot 3106390379 89592 M79.675 [id number] CHIRAG BARCENAS [address] [place] [address] 12/02/2023 10:01:57 12/02/2023 11:31:14 First metatarsophalangeal joint pain 589961286 M79.672 Health Concerns Section Related Observation LastModified by Organization Boris justin LastModified Time None Recorded Concern Status LastModified by Organization Details LastModified Time None Recorded Advance Directives Directive None Recorded Payers Encounter Date Sequence Insurance Name Policy Number Policy Bland Covered Member ID Bland Member ID Guarantor Name 02/24/2021 1 [facility] [id number] [place] Mata [id number] [place] Mata 12/02/2023 1 [facility] [id number] [place] Mata [id number] [place] Mata 12/02/2023 1 [facility] [id number] [place]em[place] Mata [id number] [place] Mtaa Notes Date Note Type Note Provider Name and Address Organization Details Recorded Time 12/02/2023 text/html left toe pain. Started 4 days ago. localized at MTP joint and also distally. 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 Had similar sxs on right toe which resolved by itself. Eats pork and chicken. No h/o gout. No medication for pain. MARIAM LOWRY MD [address] [place], [address], [place] - [facility] 12/02/2023 19:35:03
[2024-11-16 11:07] LABS: Alanine Aminotransferase 17 U/L (0-40); Albumin Level 4.2 g/dL (3.5-5.0); Alkaline Phosphatase 88 U/L (39-117); Anion Gap 10 (12-20); Aspartate Amino Transferase 21 U/L (5-37); Bilirubin Total 0.4 mg/dL (0.0-1.0); Blood Urea Nitrogen 15 mg/dL (9-16); Calcium 9.8 mg/dL (8.4-10.2); Carbon Dioxide 29 mmol/L (22-29); Chloride 107 mmol/L (96-108); Cholesterol 204 mg/dL (<200); Estimated Glomerular Filt Rate > 60; Glucose Fasting 97 mg/dL (60-99); HDL Cholesterol 42 mg/dL (>40); LDL Cholesterol Calculated 127 mg/dL (<100); Sodium 141 mmol/L (135-145); Triglycerides 177 mg/dL (<150)
== END 2024-11-16 09:48 | disposition home or self-care (01) ==
LOC: HO.LAB 09:47
PROVIDERS: PCP Internal Medicine; Visit Provider Internal Medicine
DX: E78.2 Mixed hyperlipidemia (principal); E78.5 Hyperlipidemia, unspecified
CPT/HCPCS: 36415; 80053; 80061

== ENCOUNTER → 2024-11-22 08:55 | Outpatient (BNVA) | payer OTHER, SELFPAY | PROVIDERS: PCP Internal Medicine; Visit Provider Internal Medicine | DX: Z00.00 Encounter for general adult medical examination without abnormal findings (principal); Z23 Encounter for immunization; I10 Essential (primary) hypertension; E78.2 Mixed hyperlipidemia; Z79.899 Other long term (current) drug therapy | CPT/HCPCS: 90471; 90656; 96127 ==

== ENCOUNTER 2025-05-18 08:44 | Outpatient (REF) | payer OTHER, SELFPAY ==
[2025-05-18 10:10] LABS: Alanine Aminotransferase 23 U/L (0-40); Albumin Level 4.3 g/dL (3.5-5.0); Alkaline Phosphatase 104 U/L (39-117); Anion Gap 11 (12-20); Aspartate Amino Transferase 26 U/L (5-37); Blood Urea Nitrogen 13 mg/dL (9-16); Calcium 9.3 mg/dL (8.4-10.2); Carbon Dioxide 28 mmol/L (22-29); Chloride 104 mmol/L (96-108); Cholesterol 234 mg/dL (<200); Estimated Glomerular Filt Rate > 60; HDL Cholesterol 40 mg/dL (>40); Potassium 4.4 mmol/L (3.3-5.1); Sodium 139 mmol/L (135-145); Total Protein 6.9 g/dL (6.5-8.0); Triglycerides 253 mg/dL (<150)
== END 2025-05-18 08:45 | disposition home or self-care (01) ==
LOC: HO.LAB 08:44
PROVIDERS: PCP Internal Medicine; Visit Provider Internal Medicine
DX: I10 Essential (primary) hypertension (principal); E78.5 Hyperlipidemia, unspecified
CPT/HCPCS: 36415; 80053; 80061

== ENCOUNTER 2025-05-22 13:05 | Outpatient (AMB) | payer OTHER, SELFPAY ==
--- NOTE | 2025-05-22 13:15 | A.OFFPC_ITS ---
Vital Signs 05/22/25 13:16 Height 5 ft 9 in Weight 209 lb BMI 30.9 BP 138/72 Blood Pressure Location Lt brachial Position Sitting Intake Visit Reasons: BP Intake Note: Patient here for a follow up BP Case Reviewer Required: No Accompanied by: Self / Same As Patient Allergies atorvastatin Adverse Reaction (Intermediate, Verified 05/22/25 13:41) polyarthralgia Medication List - Last Reconciled 05/22/25 by Orly Chaudhry MD amlodipine 5 mg PO DAILY 90 days fenofibrate 54 mg PO DAILY 90 days naproxen 500 mg PO BID rosuvastatin 40 mg PO DAILY 90 days Tobacco use date assessed: 11/22/24 Dental Screening Dental Screen Date: 11/22/24 HPI HPI Comments History of Present Illness Details The patient is a 64-year-old male presenting for management of hyperlipidemia and hypertension. The patient has a history of hyperlipidemia, with recent laboratory results indicating worsening cholesterol levels, currently at 234 mg/dL, up from 204 mg/dL in October. He has been prescribed rosuvastatin 40 mg for cholesterol management but admits to inconsistent adherence to the medication regimen. Dietary habits include rare consumption of fried foods and avoidance of egg yolks, but he does not regularly consume oatmeal, which is recommended for lowering cholesterol. Has Bandy risk score of 10.9% which is surface of her for heart attack or stroke in the next 10 years. The patient also has a history of hypertension, currently managed with amlodi pine 5 mg. He denies any history of smoking or alcohol consumption, which are positive lifestyle factors in managing his condition. He reports experiencing back pain, for which he occasionally uses naproxen, although it has been a long time since he last used it. The patient also mentions experiencing fatigue, which he has noticed for a long time, though the cause is unclear. [facility], [facility] Medical History Skin lesion BPPV (benign paroxysmal positional vertigo) Obese Mixed hyperlipidemia Essential hypertension Surgical History History of colonoscopy Deficient knowledge of leg surgery History of umbilical hernia repair History of lumbar fusion Family History Father No problems noted. Mother Breast cancer Maternal Aunt Cancer Maternal Uncle Cancer Social History Housing: Apartment Alcohol intake: never Patient Tobacco Use Status: Never used Tobacco e-Cigarette/Vaping Use: Never Used Second Hand Smoke Exposure: No service: No Current occupational status: employed Current occupational exposures/hazards: No Cognitive needs: No Hearing needs: No Vision needs: Yes Questionnaire Thrive Questionnaire Date Thrive assessed: 11/22/24 BERNARD-7 AMB Questionnaire BERNADR-7 Date BERNARD - 7 assessed: 11/22/24 Source: Developed by Drs. Rustam Laguerre, Sonia Aiken, Elvis Palomino and colleagues, with an educational lesvia from [employer] Review of Systems Const All systems reviewed & are unremarkable except as noted in HPI and below Card Denies chest pain at rest, Denies chest pain with activity, Denies edema, Denies irregular heart rhythm, Denies claudication, Denies dyspnea, Denies dyspnea on exertion, Denies orthopnea, Denies paroxysmal nocturnal dyspnea and Denies slow heart rate Resp Denies cough, Denies dyspnea and Denies dyspnea on exertion GI Denies abdominal pain, Denies change in bowel habits, Denies excessive flatus, Denies nausea and Denies vomiting Physical exam (Primary Care) Vital Signs: Last Vital Signs BP 138/72 05/22/25 13:16 BMI result Body Mass Index 30.9 Tobacco/Smoking Status: Tobacco use Status Tobacco use date assessed 11/22/24 05/22/25 13:19 Patient Tobacco Use Status Never used Tobacco 05/22/25 13:19 e-Cigarette/Vaping Use Never Used 05/22/25 13:19 Thrive Assessment: Date of Thrive Assessment Date Thrive assessed 11/22/24 05/22/25 13:19 Neck Neck: Yes normal visual inspection and Yes supple Resp Effort & Inspection: normal respiratory effort Auscultation: clear to auscultation bilaterally Cardio Jugular venous distension: no JVD Rate: regular rate Rhythm: regular rhythm Heart sounds: S1 normal heart sound present and S2 normal heart sound present Extrem General: Yes full ROM Coding Level of Care Code Est Pt Level 3 (16899) Complex EM visit Add On G2211 Diagnoses Essential hypertension I10 Mixed hyperlipidemia E78.2 Time Spent (min) 19 Assessment & Plan Assessment & Plan (1) Essential hypertension: Code(s): I10 - Essential (primary) hypertension Category: Medical (2) Mixed hyperlipidemia: Code(s): E78.2 - Mixed hyperlipidemia Category: Medical Plan The plan for managing the patient's hyperlipidemia includes reinforcing the importance of medication adherence, specifically with rosuvastatin 40 mg, and dietary modifications to lower cholesterol levels. The patient is advised to incorporate oatmeal into his diet at least four times a week and consider using almond or cashew milk to reduce calorie intake. Follow-up laboratory tests are scheduled in six weeks to monitor cholesterol levels and assess for any metabolic disorders. For hypertension, the patient will continue with amlodipine 5 mg, and lifestyle modifications such as regular exercise are encouraged. The patient is advised to engage in low-impact exercises to avoid exacerbating back pain, and to use naproxen as needed for pain management. Patient was informed and verbally consented to the use of an ambient scribe for clinic note documentation during this visit. Orders: Orders Lipoprotein A 6 Months E78.2 - Mixed hyperlipidemia Lipid Panel 6 Months E78.5 - Hyperlipidemia, unspecified Comprehensive [place]. Panel Fast 6 Months E78.2 - Mixed hyperlipidemia Apolipoprotein B 6 Months E78.2 - Mixed hyperlipidemia Medications: Refilled amlodipine 5 mg PO DAILY 90 tabs 1RF 90 days I10 - Essential (primary) hypertension fenofibrate 54 mg PO DAILY 90 tabs 3RF 90 days E78.2 - Mixed hyperlipidemia rosuvastatin 40 mg PO DAILY 90 tabs 1RF 90 days E78.2 - Mixed hyperlipidemia
[2025-05-22 13:16] VITALS: BP 138/72; BMI 30.9
--- OUTSIDE RECORDS SUMMARY | 2025-05-22 13:39 | XMS_ITS | Patient Health Record ---
Author Organization [facility] Address [address] [place] [address] Care Team Providers Care Emergency Vehicle Operations Instructor Name Role Phone Orly Caruso Primary Care Provider Haroon Yang Jr Unavailable Reason For Referral No Information Medications Medication SIG (Take, Route, Frequency, Duration) Notes Start Date End Date Status Colyte with Flavor Packs 240 GM As directed Orally Over the specified time. for 1 day(s) Active Nabumetone 750 MG TAKE 1 TABLET BY SOCO TH TWICE A DAY FOR 30 DAYS Oral for 30 Active Social History Tobacco Use: Social History Observation Description Date Details (start date - stop date) Never Smoker NA - NA Tobacco Use/Smoking Question Answer Notes Patient is a nonsmoker Alcohol Screen Question Answer Notes Did you have a drink containing alcohol in the p ast year? No Points 0 Interpretation Negative Problems Problem Type SNOMED Code ICD Code Onset Dates Problem Status W/U Status Risk Notes Problem 517799579 Colon cancer screening (Z12.11) Active confirmed Problem 504843557 jail (current) use of non-steroidal anti-inflammatorie s (NSAID) (Z79.1) Active confirmed Problem 89734330 Encounter for other preprocedural examination (Z01.818) Active confirmed Plan Of Treatment Future Test Test Name Order Date COLONOSCOPY 08/03/2017 Insurance Providers Payer Name Payer Address Payer Phone Subscriber Number Group Number Insured Name Patient Relationship to Insured Coverage Start Date Coverage End Date [facility] ([facility]) [address] [place] [address] [phone] [id number] MARIO BADILLO Self - patient is the insured Medical (General) History Medical History History ICD Code back pain Surgical History Surgery Date(Month/Year) right leg surgery-steel jennifer in leg 1980 lower back surgery hernia repair
== END 2025-05-22 13:54 | disposition home or self-care (01) ==
LOC: HO.HMCH 13:06
PROVIDERS: PCP Internal Medicine; Visit Provider Internal Medicine
DX: I10 Essential (primary) hypertension (principal); E78.2 Mixed hyperlipidemia